=== PATIENT | female | born 1995 | race Two or more races ===

== ENCOUNTER 2021-01-04 23:38 | Emergency (ER) | payer OTHER ==
[~2021-01-04] VITALS: Ht 162.6 cm; Wt 90.0 kg
[2021-01-05 00:40] VITALS: BP 115/83
[2021-01-05 00:41] LABS: CHLORIDE 99 mEq/L (98-107)
[2021-01-05 00:45] LABS: BASOPHILS % 0.6 % (0.0-2.0); EOSINOPHILS % 1.4 % (0.0-5.0); HEMATOCRIT. 40.9 % (36.0-48.0); HEMOGLOBIN. 14.2 g/dL (12.0-16.0); LYMPHOCYTES % 40.3 % (20.0-50.0); MEAN CORPUSCULAR HEMOGLOBIN 28.2 pg (28.0-32.0); MEAN CORPUSCULAR VOLUME 81.1 fL (81.0-99.0); MEAN PLATELET VOLUME 8.4 fl (7.4-10.4); MONOCYTES % 8.8 % (2.0-8.0); NEUTROPHILS % 48.9 % (40.0-76.0); PLATELET 198 x1000/uL (130-400); RED BLOOD CELL COUNT 5.04 mill/uL (4.2-5.4); RED CELL DISTRIBUTION WIDTH 13.2 % (11.6-14.6)
[2021-01-05] MEDS ORDERED: AZIT250T12 MT (01:35)
[2021-01-05] MEDS ORDERED: ACETAMINOPHEN 325MG TABLET PO ONE (01:45)
[2021-01-05] MEDS ORDERED: AZITHROMYCIN 500 MG TABLET PO ONE (01:45)
== END 2021-01-05 01:49 | disposition home or self-care (01) ==
LOC: ER 23:38
DX: J40 Bronchitis, not specified as acute or chronic (principal); F17.200 Nicotine dependence, unspecified, uncomplicated; Z88.2 Allergy status to sulfonamides; Z88.6 Allergy status to analgesic agent; Z98.890 Other specified postprocedural states
CPT/HCPCS: 36415; 71045; 80053; 83880; 84484; 85025; 85379; 93005; 99285

== ENCOUNTER 2021-02-07 21:51 | Emergency (ER) | payer OTHER ==
[~2021-02-07] VITALS: Ht 160 cm; Wt 89.0 kg
[~2021-02-07 21:51] MED LIST: AZIT250T12 MT
[2021-02-08] MEDS ORDERED: ACETAMINOPHEN WITH CODEINE 300/30MG TABLET PO STA (00:40)
[2021-02-08 00:53] VITALS: BP 119/84
[2021-02-08 01:50] LABS: CLARITY URINE CLEAR (CLEAR); COLOR URINE YELLOW (YELLOW); KETONES URINE NEGATIVE (NEGATIVE); LEUKOCYTE ESTERASE URINE NEGATIVE (NEGATIVE); NITRITE URINE NEGATIVE (NEGATIVE); OCCULT BLOOD URINE NEGATIVE (NEGATIVE); PH URINE 5.5 (4.5-8.0); PROTEIN URINE NEGATIVE (NEGATIVE); SPECIFIC GRAVITY URINE 1.033 (1.005-1.030); UROBILINOGEN URINE 0.2 E.U./dL (0.2-1.0)
[2021-02-08] MEDS ORDERED: CYCL5TAB MT (02:42)
[2021-02-08] MEDS ORDERED: ACET-2708 PO (02:42)
== END 2021-02-08 03:07 | disposition home or self-care (01) ==
LOC: ER 21:51
DX: M54.5 Low back pain (principal); R73.9 Hyperglycemia, unspecified; J40 Bronchitis, not specified as acute or chronic; Z88.2 Allergy status to sulfonamides; Z88.6 Allergy status to analgesic agent; Z98.890 Other specified postprocedural states
CPT/HCPCS: 81003; 81025; 82962; 99283

== ENCOUNTER 2021-02-10 16:29 | Emergency (ER) | payer OTHER ==
[~2021-02-10] VITALS: Ht 157.5 cm; Wt 99.0 kg
[~2021-02-10 16:29] MED LIST changes: +ACET-2708 PO; +CYCL5TAB MT
[2021-02-10] MEDS ORDERED: ACETAMINOPHEN 500MG TABLET PO ONE (18:30)
[2021-02-10 20:33] VITALS: BP 131/79
== END 2021-02-10 20:37 | disposition home or self-care (01) ==
LOC: ER 16:36
DX: M25.552 Pain in left hip (principal); M25.512 Pain in left shoulder; Z88.2 Allergy status to sulfonamides; Z88.6 Allergy status to analgesic agent; Z90.49 Acquired absence of other specified parts of digestive tract
CPT/HCPCS: 71045; 73030; 73502; 99284